=== PATIENT | male | born 1975 | race Caucasian/White ===

== ENCOUNTER 2017-12-23 19:16 | Emergency (ER) | payer BC ==
[2017-12-23 20:29] LABS: #Basophils 0.1 thou/uL (0.0-0.2); #Eosinphils 0.1 thou/uL (0.0-0.7); #Lymphocytes 2.2 thou/uL (1.20-3.40); #Monocytes 0.5 thou/uL (0.11-0.59); #Neutrophils 3.4 thou/uL (1.40-6.50); %Basophils 1.4 % (0.0-1.0); %Lymphocytes 34.8 % (21.0-51.0); %Monocytes 8.4 % (0.0-10.0); %Neutrophils 53.4 % (42.0-75.0); Hemoglobin 15.6 g/dL (14.0-18.0); Mean Corpuscular HGB CONC 34.5 g/dL (32.0-36.0); Mean Corpuscular Hemoglobin 29.5 pg (27.0-31.0); Mean Corpuscular Volume 85.5 fl (80.0-94.0); Mean Platelet Volume 7.7 fL (7.4-10.4); Platelet Count 252 thou/uL (130-400); Red Blood Cell (RBC) Count 5.29 mill/uL (4.70-6.10); White Blood Cell (WBC) Count 6.4 thou/uL (4.8-10.8)
--- NOTE | 2017-12-23 20:30 | RAD ---
CHEST TWO VIEWS: History: Cough and chest pressure. Comparison: None. FINDINGS: Lungs are clear. No pneumothorax or effusion. Cardiac silhouette and mediastinal contours are within normal limits. IMPRESSION: No acute intrathoracic abnormality. POS: [facility]
[2017-12-23 20:33] LABS: CKMB 1.7 ng/mL (0-6.6); Troponin I Less than 0.010 ng/mL (< 0.028)
[2017-12-23 20:34] LABS: ALT (SGPT) 23 U/L (8-55); AST (SGOT) 20 U/L (5-34); Albumin 3.9 g/dL (3.5-5.0); Alkaline Phosphatase 55 U/L (40-150); Anion Gap 14 mmol/L (10-20); BUN (Urea Nitrogen) 17 mg/dL (8.9-20.6); Bilirubin, Total 0.4 mg/dL (0.2-1.2); Calc. Creatinine Clearance 0 mL/min (70-130); Carbon Dioxide 25 mmol/L (22-29); Chloride 107 mmol/L (98-107); Estimated GFR-MDRD 77; Globulin 2.5 g/dL (2.4-3.5); Glucose 119 mg/dL (70-105); Potassium 3.7 mmol/L (3.5-5.1); Protein, Total 6.4 g/dL (6.0-8.3); Sodium 142 mmol/L (136-145)
== END 2017-12-23 20:51 | disposition home or self-care (01) ==
LOC: SCSER 19:16
DX: J40 Bronchitis, not specified as acute or chronic (principal); F41.9 Anxiety disorder, unspecified; F32.9 Major depressive disorder, single episode, unspecified
CPT/HCPCS: 71046; 80053; 82553; 84484; 85025; 93005

== ENCOUNTER 2019-04-20 19:34 | Inpatient (IN) | payer BC ==
[2019-04-20 20:20] LABS: Hemoglobin 15.2 g/dL (14.0-18.0); Mean Corpuscular HGB CONC 31.1 g/dL (32.0-36.0); Mean Corpuscular Hemoglobin 21.9 pg (27.0-31.0); Mean Corpuscular Volume 70.4 fL (78.0-98.0); Mean Platelet Volume 7.6 fL (7.4-10.4); Platelet Count 248 thou/uL (130-400); RBC Distribution Width 17.7 % (11.5-14.5); Red Blood Cell (RBC) Count 6.93 mill/uL (4.70-6.10); White Blood Cell (WBC) Count 9.9 thou/uL (4.8-10.8)
[2019-04-20 20:29] LABS: ALT (SGPT) 21 U/L (8-55); AST (SGOT) 20 U/L (5-34); Albumin 4.1 g/dL (3.5-5.0); Alkaline Phosphatase 66 U/L (40-150); Anion Gap 15 mmol/L (10-20); BUN (Urea Nitrogen) 11 mg/dL (8.9-20.6); Bilirubin, Total 0.7 mg/dL (0.2-1.2); Calc. Creatinine Clearance 0 mL/min (70-130); Calcium 9.3 mg/dL (7.8-10.44); Carbon Dioxide 25 mmol/L (22-29); Chloride 103 mmol/L (98-107); Estimated GFR-MDRD 58; Globulin 3.1 g/dL (2.4-3.5); Glucose 107 mg/dL (70-105); Lipase 25 U/L (8-78); Potassium 3.7 mmol/L (3.5-5.1); Protein, Total 7.2 g/dL (6.0-8.3); Sodium 139 mmol/L (136-145)
[2019-04-20 20:49] LABS: #Lymphocytes 0.6 thou/uL (1.20-3.40); #Monocytes 0.6 thou/uL (0.11-0.59); #Neutrophils 8.6 thou/uL (1.40-6.50); %Basophils 0.5 % (0.0-1.0); %Eosinophils 0.2 % (0.0-10.0); %Lymphocytes 6.3 % (21.0-51.0); %Monocytes 6.2 % (0.0-10.0); %Neutrophils 86.9 % (42.0-75.0); Hypochromia SLIGHT = 6-15 cells (100X) (0-5/hpf); MDiff Complete? YES; Microcytosis SLIGHT = 6-15 cells (100X) (0-5/hpf); Ovalocytes SLIGHT = 2-5 cells (100X) (0-1/hpf); Platelet Morphology Comment Appears Adequate; Polychromasia SLIGHT = 2-3 cells (100X) (0-2/hpf); Stomatocytes SLIGHT = 2-5 cells (100X) (0-1/hpf)
--- NOTE | 2019-04-20 20:53 | CT ---
CT Abdomen Pelvis W Con: 04/20/2019 8:03 PM CLINICAL INFORMATION: Bright red bloody diarrhea and fever COMPARISON: None. TECHNIQUE: Multiple contiguous axial images were obtained and a CT of the abdomen and pelvis with IV contrast. C oronal reformats were performed. FINDINGS: Lower Chest: within normal limits. Abdomen: Liver: within normal limits. Bile Ducts: Normal caliber. Gallbladder: Absent Pancreas: within normal limits. Spleen: within normal limits. Adrenals: within normal limits. Kidneys: within normal limits. Pelvis: Reproductive Organs: No pelvic masses. Ureters: within normal limits. Bladder: within normal limits. Peritoneum: No ascites or free air, no fluid collection. Bowel: Normal caliber. Mesentery and Retroperitoneum: No enlarged mesenteric or retroperitoneal lymph nodes. Vessels: Normal. Abdominal Wall: within normal limits. Bones: Within normal limits IMPRESSION: No evidence of acute intraabdominal\pelvic abnormality.
[2019-04-20 20:54] LABS: Bilirubin Small (Negative); Blood, Urine Negative (Negative); Glucose, Urine (Dipstick) Negative (Negative); Leukocyte Negative (Negative); Nitrite Negative (Negative); Protein, Urine (Dipstick) 30 mg/dL (Neg-Trace); Urobilinogen 0.2 mg/dL (0.2-1.0)
[2019-04-20 21:01] LABS: Clarity Hazy (Clear)
[2019-04-20] MEDS ORDERED: Ondansetron PF 4 MG/2 ML Vial ONE (21:01)
[2019-04-20] MEDS ORDERED: Ibuprofen 600 MG TAB ONE (21:15)
[2019-04-20 21:16] LABS: Bacteria/HPF 1+ HPF (None Seen); Hyaline Casts/LPF 0-3 HYALINE CAST LPF (0-3 Hyaline); RBC/HPF 0-3 HPF (0-3); WBC/HPF 0-3 HPF (0-3)
[2019-04-21] MEDS ORDERED: Ondansetron ODT 4 MG TAB SL PRN (00:06)
[2019-04-21] MEDS ORDERED: Ondansetron PF 4 MG/2 ML Vial IVP PRN (00:06)
[2019-04-21] MEDS: Sodium Chloride 0.9% 1,000 ML IV SCH ×2 (00:28→08:15)
[2019-04-21 00:44] VITALS: BMI 36.7
[2019-04-21] MEDS ORDERED: Acetaminophen 325 MG TAB PO PRN (00:53)
[2019-04-21 04:51] LABS: #Lymphocytes 0.9 thou/uL (1.20-3.40); #Monocytes 0.8 thou/uL (0.11-0.59); #Neutrophils 7.3 thou/uL (1.40-6.50); %Eosinophils 0.1 % (0.0-10.0); %Lymphocytes 10.3 % (21.0-51.0); %Monocytes 8.7 % (0.0-10.0); %Neutrophils 80.8 % (42.0-75.0); Hemoglobin 14.1 g/dL (14.0-18.0); Mean Corpuscular HGB CONC 30.4 g/dL (32.0-36.0); Mean Corpuscular Hemoglobin 22.4 pg (27.0-31.0); Mean Corpuscular Volume 73.6 fL (78.0-98.0); Mean Platelet Volume 11.4 fL (7.4-10.4); Platelet Count 207 thou/uL (130-400); Red Blood Cell (RBC) Count 6.28 mill/uL (4.70-6.10)
[2019-04-21] MEDS: Acetaminophen 325 MG TAB PO PRN ×3 (08:25→22:16)
--- NOTE | 2019-04-21 11:13 | HP ---
CHIEF COMPLAINT: Black tarry stools. HISTORY OF PRESENT ILLNESS: This is a 43-year-old male, presenting to the ER from an outside facility having had bright red blood per rectum and hematochezia. The patient was seen at an outside facility, had bright red blood bleeding over there and presented to [facility] ER. The patient was evaluated in the ER and admitted overnight. The patient did not have any stool or diarrhea here and had not had a POC occult blood done in the ER, who was directly admitted from the ER to the Medicine Team for GI bleeding. The patient at this point in time states that he is having some abdominal pain and feels that his stomach is turning very quickly and admits to subjective fevers at home of 100, has not had fevers here. The patient states that he has never had this happen to him before. Associated nausea. No vomiting. No chest pain, chills, or shortness of breath. The patient's is accompanying him at bedside. The patient is seen and examined in the hospital room. All questions were answered. ALLERGIES: NO KNOWN DRUG ALLERGIES. REVIEW OF SYSTEMS: All systems reviewed, pertinent positives in HPI, otherwise negative. PAST MEDICAL HISTORY: None. SOCIAL HISTORY: Nondrinker. Nonsmoker. HOME MEDICATIONS: See MAR. FAMILY HISTORY: Diabetes and hypertension. PHYSICAL EXAMINATION: VITAL SIGNS: Blood pressure 129/59, temperature of 99.3, O2 saturation 94% on room air, heart rate of 87, respiratory rate of 18. GENERAL: The patient appears in mild discomfort, lying in bed. HEENT: Pupils are equal, round, and reactive to light and accommodation. Oral cavity is moist and pink. NECK: Supple, mobile, and nontender. Thyroid is appreciated. PULMONARY: Clear to auscultation bilaterally. Regular breath sounds. CARDIOVASCULAR: Regular rate and rhythm. S1 and S2. No murmurs, rubs, or gallops appreciated. ABDOMEN: Positive bowel sounds. Soft. Mildly tender to palpation, mainly left lower quadrant. No rebound or guarding noted. EXTREMITIES: 2+ peripheral pulses. No cyanosis, clubbing, or edema noted. NEUROLOGIC: Cranial nerves 2 through 12 intact. Alert and oriented x3. LABORATORY DATA: Reviewed. IMAGING DATA: Reviewed. ASSESSMENT: 1. Bright red blood per rectum. 2. Abdominal pain, suspected for colitis versus diverticulitis. 3. Nausea. PLAN: At this point in time, we will start the patient on normal saline at 75 mL an hour. Admit to inpatient and change status to inpatient rather. Consult GI. Start the patient on Levaquin and Flagyl. Keep the patient n.p.o. past midnight in case any intervention is needed for the GI bleed. Pain control, Tylenol p.r.n., and Zofran p.r.n. Case and plan discussed with the patient and his at length. They understood and agreed with this plan. Job ID: [id number]
[2019-04-21] MEDS ORDERED: Morphine 2 MG/ML SYRINGE SLOW IVP PRN (12:04)
[2019-04-21] MEDS: metroNIDAZOLE 500 MG in Premix Bag 1 BAG IVPB SCH ×2 (13:38→22:16)
--- NOTE | 2019-04-22 03:38 | CON ---
DATE OF CONSULTATION: 04/21/2019 REASON FOR CONSULTATION: Abdominal pain, hematochezia. CONSULTING PHYSICIAN: Malachi Lyons DO HISTORY OF PRESENT ILLNESS: The patient is a 43-year-old male with no significant past medical history, presenting with complaints of hematochezia. He states that he was in his usual state of health until yesterday when he experienced the acute onset of diarrhea characterized as having between 5 to 10 liquid bowel movements over the next 24 hours. During that time period, he initially had more liquid type stools, but quickly degraded to hematochezia characterized as bright red blood per rectum with blood present both in the stool and on the toilet paper. When he did see the passage of blood, it was always associated with the passage of stool, where he would have more smaller volume liquid bowel movements during this time. This was also associated with increased abdominal discomfort of the lower abdominal quadrants, most especially the left lower quadrant characterized as a cramping type pain, nonradiating, and characterized more as a discomfort rather than a true pain achieving a number on the pain scale. With this abdominal pain and diarrhea, was also associated with increased fever with a 102 degrees fever noted at home, subjective chills, increased flatulence, headache, diaphoresis, in addition to the increased abdominal discomfort as described above. Otherwise, he denied any nausea, vomiting, hematemesis, melena, dysphagia, odynophagia, weight loss, sick contacts, or drinking from untreated water sources. 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 With increased bloody bowel movements that did not show any abatement, it prompted him to seek healthcare assistance at [facility], and ultimately admitted for further evaluation. REVIEW OF SYSTEMS: A 10-category review of systems was obtained with all responses negative except for the pertinent positives as listed in HPI. PAST MEDICAL HISTORY: None. PAST SURGICAL HISTORY: None. SOCIAL HISTORY: Denies any tobacco, alcohol, or illicit drug use. FAMILY HISTORY: Denies any GI malignancies, OUTPATIENT MEDICATIONS: Reviewed. ALLERGIES: NO KNOWN DRUG ALLERGIES. PHYSICAL EXAMINATION: VITAL SIGNS: Temperature 97.8, pulse 74, blood pressure 131/78, respiratory rate 18, saturating 94% on room air. GENERAL: The patient was lying in bed, in no acute distress. Alert and oriented x4. HEENT: Normocephalic, atraumatic. NECK: Supple. No scleral icterus, or JVD noted. CARDIOVASCULAR: Regular rate and rhythm with no discernible murmurs, gallops, or rubs. RESPIRATORY: Clear to auscultation bilaterally with no discernible wheezes or rales. ABDOMEN: Hyperactive bowel sounds. Soft, nondistended, mild tenderness to palpation in the left lower quadrant. EXTREMITIES: No cyanosis, clubbing, or edema. LABORATORY DATA: CBC with a white blood cell count of 9.0, hemoglobin 14.1, hematocrit 46.3, platelets 207. Chemistry with a sodium of 139, potassium 3.7, chloride 103, CO2 25, BUN 11, creatinine 1.34, glucose 107. AST 20, ALT 21, alkaline phosphatase 66, total bilirubin 0.6. Stool studies have been negative thus far for Clostridium difficile, Campylobacter and E coli, although a FOBT was positive. IMAGING DATA: CT of the abdomen and pelvis was obtained on April 20, 2019, which was normal without any intraabdominal abnormalities. ASSESSMENT AND PLAN: The patient is a 43-year-old male with no significant past medical history, presenting with acute onset of hematochezia. Hematochezia. The patient is presenting with acute onset of hematochezia characterized as bright red blood per rectum with multiple small volume bloody bowel movements over the last 24 hours. Despite the increased frequency of these bloody bowel movements, he has not had a significant decrease in his H and H, nor has he exhibited any evidence of hemodynamic instability. Given the acute onset of this diarrhea and hematochezia, an infectious etiology is more likely, although the patient has been ruled out for Campylobacter, E coli and C diff at this time with stool culture still pending. Differential could still include an infectious etiology (Salmonella, Shigella, Entamoeba histolytica, Yersinia) segmental colitis associated with diverticulosis/diverticular disease, inflammatory bowel disease (less likely) and/or possible GI malignancy (less likely). RECOMMENDATIONS: 1. Would follow up on the stool studies thus far as well as the stool culture for possible Salmonella or shigella. We will attempt to obtain stool studies related to Entamoeba histolytica. 2. We would continue with IV fluid administration with more conservative management at this time. 3. Administration of antibiotics is not necessarily indicated given lack of infectious etiology seen on stool studies, although it may have been sterilized if antibiotics were started prior to obtaining the samples, in which case treatment for 7 days total therapy would be advised. 4. If the patient continues to have significant bloody bowel movements during the course of this hospitalization, I would then consider colonoscopy for more intraluminal evaluation, but we will hold off on that at this time. We will continue to follow. Please call with any questions. Job ID: [id number]
[2019-04-22 04:39] LABS: Anion Gap 11 mmol/L (10-20); BUN (Urea Nitrogen) 7 mg/dL (8.9-20.6); Calc. Creatinine Clearance 145 mL/min (70-130); Carbon Dioxide 29 mmol/L (22-29); Chloride 103 mmol/L (98-107); Estimated GFR-MDRD 62; Glucose 95 mg/dL (70-105); Potassium 3.8 mmol/L (3.5-5.1); Sodium 139 mmol/L (136-145)
[2019-04-22 04:45] LABS: Band 13 % (5-11); Hemoglobin 13.5 g/dL (14.0-18.0); Lymphocytes 25 % (21-51); MDiff Complete? YES; Mean Corpuscular HGB CONC 30.3 g/dL (32.0-36.0); Mean Corpuscular Hemoglobin 22.5 pg (27.0-31.0); Mean Corpuscular Volume 74.2 fL (78.0-98.0); Mean Platelet Volume 10.3 fL (7.4-10.4); Monocytes 12 % (0-10); Neutrophil 50 % (42-75); Platelet Count 182 thou/uL (130-400); Platelet Morphology Comment Appears Adequate; RBC Distribution Width 17.5 % (11.5-14.5); RBC Morphology Normal; Reactive Lymphocytes 1 % (0-10); Red Blood Cell (RBC) Count 5.98 mill/uL (4.70-6.10); White Blood Cell (WBC) Count 6.7 thou/uL (4.8-10.8)
[2019-04-22] MEDS: metroNIDAZOLE 500 MG in Premix Bag 1 BAG IVPB SCH (06:06)
[2019-04-22 11:23] VITALS: BP 128/78; TEMP 98.4
--- NOTE | 2019-04-22 21:23 | DIS ---
DATE OF ADMISSION: 04/20/2019 DATE OF DISCHARGE: 04/22/2019 DISCHARGE DIAGNOSES: 1. Bright blood per rectum. 2. Abdominal pain. 3. Nausea. HOSPITAL COURSE: The patient is a 43-year-old male, please refer to the H and P for further details, who presented to the hospital with complaints of black tarry stool. The patient at that time did have stool studies and was put on antibiotics and also was seen by Gastroenterology. He also had a CT of abdomen and pelvis, which did not indicate any acute abnormalities. The patient's bloody diarrhea improved. He was able to tolerate his meals without any difficulties. He has all of his stool studies including C diff negative, Campylobacter negative, E coli negative, stool culture negative. His stool occult was positive. Blood cultures were negative. The patient continued to be afebrile. He will be discharged home. He will follow up with GI for possible colonoscopy in a couple of months. HOME MEDICATIONS: His home medications will be as of the followin. Flagyl 500 mg q.8 hours for a total of 7 days. 2. Levaquin 500 mg daily. 3. Florastor 250 mg daily. PHYSICAL EXAMINATION: VITAL SIGNS: Temperature 98.4, pulse 64, respirations 18, 96% on room air, blood pressure 120/78. GENERAL: He is awake, alert, and oriented x3. Does not appear in distress. CV: S1 and S2 present. No murmurs, rubs, or gallops. DISCHARGE INSTRUCTIONS: Again, he will be discharged home. Follow up with his primary and also with GI for colonoscopy and this was educated to the patient and the patient's who was at the bedside. Job ID: [id number]
== END 2019-04-22 14:47 | disposition home or self-care (01) | DRG 379 ==
LOC: SCSER 19:34 → OBSVTOIN 22:15 → ERHOLD 22:15 → ONC 23:48
PROVIDERS: ADMIT Internal Medicine; ATTEND Internal Medicine
DX: K92.1 Melena (principal); F41.9 Anxiety disorder, unspecified; F32.9 Major depressive disorder, single episode, unspecified; R10.9 Unspecified abdominal pain; R11.0 Nausea; Z90.49 Acquired absence of other specified parts of digestive tract
CPT/HCPCS: 36415; 74177; 80048; 80053; 81003; 81015; 82274; 83605; 83690; 85025; 87040; 87045; 87046; 87324; 87449; 87899; 96361; 96374; J1956; J2270; J2405; Q0162

== ENCOUNTER 2022-09-10 19:30 | Outpatient (CLI) | payer BC | END 2022-09-10 19:31 | disposition home or self-care (01) | LOC: SLEEPLAB 19:30 | PROVIDERS: ATTEND Family Medicine | DX: G47.33 Obstructive sleep apnea (adult) (pediatric) (principal); R53.83 Other fatigue; E66.9 Obesity, unspecified; R06.83 Snoring; Z68.38 Body mass index [BMI] 38.0-38.9, adult | CPT/HCPCS: 95810 ==